=== PATIENT | male | born 1970 | race Caucasian/White ===

== ENCOUNTER 2017-02-22 07:07 | Emergency (ER) | payer OTHER ==
[2017-02-22 07:20] VITALS: BP 129/82
--- NOTE | 2017-02-22 08:19 | UC ---
Efren Brito Aidan, scribed for Thom Gay MD on 02/22/17 at 0742 . FLU HPI - HPI Summary HPI Summary: 47 y/o male presents to the Urgent Care with a complaint of an acute, constant, moderate sore throat that has persisted for the past 3 weeks. For the past 2 days, he has had crusty eyes and a productive cough producing yellow and clear phlegm. Other associated symptoms include chest congestion in the chest and sinus pressure. Though he denies fever or chills, several days ago, his son had a fever. Pt has not tried antihistamines. Hx of allergies to cats, however, no know allergies to medications. His medications were reviewed. - History of Current Complaint Chief Complaint: UCGeneralIllness Stated Complaint: SORE THROAT Time Seen by Provider: 02/22/17 07:20 Hx Obtained From: Patient Onset/Duration: Sudden Onset, Lasting Days, Still Present Severity Currently: Moderate Severity Initially: Moderate Pain Intensity: 0 Pain Scale Used: 0-10 Numeric Associated Signs & Symptoms: Positive: Cough. Negative: Negative - chest congestion, sinus pressure, sore throat, crust in the eyes - Allergy/Home Medications Allergies/Adverse Reactions: Allergies Allergy/AdvReac Type Severity Reaction Status Date / Time Cat Allergy Airway Uncoded 02/22/17 07:20 Obstruction Home Medications: Home Medications Bimatoprost 0.01% OPHTH (NF) [Lumigan 0.01% OPHTH (NF)] 1 drop BOTH EYES DAILY 02/22/17 [History Confirmed 02/22/17] Ezetimibe TAB* [Zetia TAB*] 1 tab PO DAILY 02/22/17 [History Confirmed 02/22/17] Travoprost Z 0.004% OPHTH (NF) [Travatan Z 0.004% OPTH (NF)] 1 drop BOTH EYES DAILY 02/22/17 [History Confirmed 02/22/17] PMH/Surg Hx/FS Hx/Imm Hx - Surgical History Surgical History: None - Family History Known Family History: Positive: Hypertension - Social History Occupation: Employed Full-time Lives: With Family Alcohol Use: Daily Alcohol Amount: 2 per day Substance Use Type: None Smoking Status (MU): Never Smoked Tobacco Review of Systems Constitutional: Negative Skin: Negative Eyes: Other - eye crust ENT: Sore Throat, Sinus Pain/Tenderness - sinus pressure Respiratory: Cough, Other - chest congestion Cardiovascular: Negative Gastrointestinal: Negative Genitourinary: Negative Motor: Negative Neurovascular: Negative Musculoskeletal: Negative Neurological: Negative Psychological: Negative All Other Systems Reviewed And Are Negative: Yes Physical Exam Triage Information Reviewed: Yes Appearance: Well-Appearing, No Pain Distress Vital Signs: Initial Vital Signs Temp 97.4 F 02/22/17 07:14 Pulse 77 02/22/17 07:14 Resp 18 02/22/17 07:14 BP 129/82 02/22/17 07:14 Pulse Ox 96 02/22/17 07:14 Vital Signs Reviewed: Yes Eye Exam: Normal Eyes: Positive: Other: - PERRL, EOMI, injected sclara bilaterally, crusting on eyelashes, ENT Exam: Normal ENT: Positive: Other: - positive rhinorrhea Neck exam: Normal Neck: Positive: Supple, Nontender Respiratory Exam: Normal Respiratory: Positive: Other: - CTA, breath sounds present Cardiovascular: Positive: RRR Abdomen Description: Positive: Nontender, Soft, Other: - anterior cervical lymphadenopathy Bowel Sounds: Positive: Present Musculoskeletal Exam: Normal Musculoskeletal: Positive: Strength Intact, ROM Intact Neurological Exam: Normal Neurological: Positive: Alert Psychological Exam: Normal Psychological: Positive: Age Appropriate Behavior Skin Exam: Normal Flu Course/Dx - Course Course Of Treatment: 47 y/o male presents with a sore throat, chest congestion, sinus pressure and a cough. Medications reviewed. - Differential Dx/Diagnosis Provider Diagnoses: Sinusitis Discharge - Discharge Plan Condition: Stable Disposition: HOME Prescriptions: Amoxicillin/Clavulanate TAB* [Augmentin TAB 875*] 875 mg PO BID #20 tab Tobramycin 0.3% OPHTH.BRUCE* 1 drop BOTH EYES Q4H #1 btl Patient Education Materials: Sinusitis (ED), Conjunctivitis (ED) Referrals: No Primary Care Phys,NOPCP [Primary Care Provider] - Additional Instructions: FOLLOW UP WITH YOUR DOCTOR. GET RECHECKED FOR ANY WORSENING OF YOUR CONDITION OR QUESTIONS OR CONCERNS. The documentation as recorded by the Efren galloway Aidan accurately reflects the service I personally performed and the decisions made by me, Thom Gay MD.
== END 2017-02-22 07:42 | disposition home or self-care (01) ==
LOC: UCEAST 07:07
DX: J32.9 Chronic sinusitis, unspecified (principal)
CPT/HCPCS: 99212; G0463

== ENCOUNTER 2017-03-10 15:15 | Emergency (ER) | payer OTHER ==
[2017-03-10 15:28] VITALS: BP 119/85
--- NOTE | 2017-03-10 16:25 | UC ---
Throat Pain/Nasal Alonzo HPI - HPI Summary HPI Summary: Was tx for sinusitis with augmentin starting 02/22/17 for 10 days. [place] like he responded quickly and markedly, but only got about 90% better. After he stopped abx sx quickly worsened and now he is having sinus pain, congestion, and ear fullness. Denies fever, trouble breathing, or drainage from the ears. - History of Current Complaint Chief Complaint: UCRespiratory Stated Complaint: RESP ISSUE Time Seen by Provider: 03/10/17 16:06 Hx Obtained From: Patient Onset/Duration: Gradual Onset, Lasting Weeks Severity: Moderate Cough: Nonproductive Associated Signs & Symptoms: Positive: Sinus Discomfort, Nasal Discharge. Negative: Fever, Vomiting, Rash - Allergies/Home Medications Allergies/Adverse Reactions: Allergies Allergy/AdvReac Type Severity Reaction Status Date / Time Niacin [From Niaspan] Allergy Severe HAND TREMOR Verified 03/10/17 15:28 Statins Allergy Severe MUSCLE Verified 03/10/17 15:28 PAIN, LIGHT SENSITIVITY Cat Allergy Airway Uncoded 03/10/17 15:28 Obstruction Home Medications: Home Medications Timolol 0.5% OPTH.BRUCE* [Timoptic 0.5% Opth*] 03/10/17 [History] PMH/Surg Hx/FS Hx/Imm Hx Previously Healthy: No - glaucoma - Surgical History Surgical History: None - Family History Known Family History: Positive: Hypertension - Social History Alcohol Use: Daily Alcohol Amount: 2 per day Substance Use Type: None Smoking Status (MU): Never Smoked Tobacco Review of Systems Constitutional: Negative Skin: Negative Eyes: Negative ENT: Ear Ache, Sinus Congestion, Sinus Pain/Tenderness Respiratory: Negative Cardiovascular: Negative Gastrointestinal: Negative Genitourinary: Negative Motor: Negative Neurovascular: Negative Musculoskeletal: Negative Neurological: Negative Psychological: Negative All Other Systems Reviewed And Are Negative: Yes Physical Exam Triage Information Reviewed: Yes Appearance: Well-Appearing, No Pain Distress, Well-Nourished Vital Signs: Initial Vital Signs Temp 97.8 F 03/10/17 15:24 Pulse 76 03/10/17 15:24 Resp 16 03/10/17 15:24 BP 119/85 03/10/17 15:24 Pulse Ox 96 03/10/17 15:24 Vital Signs Reviewed: Yes Eye Exam: Normal Eyes: Positive: Conjunctiva Clear ENT: Positive: Hearing grossly normal, Pharynx normal, Nasal congestion, TMs normal, Other: - sinus tenderness. Negative: Tonsillar swelling, Tonsillar exudate Dental Exam: Normal Neck exam: Normal Neck: Positive: Supple, Nontender Respiratory Exam: Normal Respiratory: Positive: Chest non-tender, Lungs clear, Normal breath sounds, No respiratory distress, No accessory muscle use Cardiovascular Exam: Normal Cardiovascular: Positive: RRR, No Murmur Musculoskeletal Exam: Normal Neurological Exam: Normal Neurological: Positive: Alert Psychological Exam: Normal Skin Exam: Normal Throat Pain/Nasal Course/Dx - Differential Dx/Diagnosis Provider Diagnoses: recurrent rhinosinusitis Discharge - Discharge Plan Condition: Stable Disposition: HOME Prescriptions: Mometasone NASAL (NF) [Nasonex (NF)] 2 spray BOTH NARES BID #1 nasal.spr Moxifloxacin TAB(NF) [Avelox TAB (NF)] 400 mg PO DAILY #10 tab Patient Education Materials: Rhinosinusitis (ED) Referrals: No Primary Care Phys,NOPCP [Primary Care Provider] - Additional Instructions: Please arrange to follow up with your primary care provider around when you will be finishing this antibiotic; if you are not completely better, you may need to see an ENT.
== END 2017-03-10 16:35 | disposition home or self-care (01) ==
LOC: UCEAST 15:15
DX: J01.90 Acute sinusitis, unspecified (principal)
CPT/HCPCS: 99212; G0463

== ENCOUNTER → 2018-10-12 10:05 | Day surgery (SDC) | payer OTHER ==
[~2018-10-12 10:05] MED LIST: Buffered Lidocaine 1% SYRIN* 1 ML/SYRINGE INTRADERM ONE; Bupivacaine 0.5% W/EPI SDV* 30 ML VIAL ONE; Dexamethasone IV* 4 MG/ML 1 ML (4 MG) IV SLOW PU ONE; Dexamethasone IV* 4 MG/ML 1 ML (4 MG) ONE; Famotidine IV* 10 MG/ML 2 ML (20 mg) IV ONE; Famotidine IV* 10 MG/ML 2 ML (20 mg) ONE; Ketorolac INJ* 30 MG/ML 1 ML VIAL ONE; Lactated Ringers 1000 ML Bag* 1,000 ML IV SCH; Lidocaine 1% INJ* 10 MG/ML 30 ML SDV ONE; Midazolam* 1 MG/ML 5 ML VIAL (5 MG) ONE; Naloxone* 0.4 MG/ML 1 ML VIAL IV PRN; Ondansetron INJ* 2 MG/ML VIAL ONE; Propofol* 10 MG/ML 20 ML BTL ONE; ceFAZolin 2 GM PREMIX in ORs 2 GM/50 ML BAG IVPB ONE; fentaNYL* 50 MCG/ML 2 ML VIAL (100 MCG VIAL) ONE
[2018-10-12 16:02] VITALS: BP 130/77
--- NOTE | 2018-10-12 20:23 | OP ---
CC: Dr. Parul Hidalgo * DATE OF OPERATION: 10/12/18 - SDS DATE OF : 72 SURGEON: Milton Echeverria MD DRY FINISHER: Maribeth Dupree NP ANESTHESIOLOGIST: Dr. Lora. ANESTHESIA: LMAC anesthesia. PRE-OP DIAGNOSIS: Right inguinal hernia. POST-OP DIAGNOSIS: Right inguinal hernia. OPERATIVE PROCEDURE: Open repair of right inguinal hernia with mesh. DESCRIPTION OF PROCEDURE: The patient was supine on the operating room table. After adequate intravenous sedation, compression stockings, Simi Hugger warmer, and intravenous antibiotics, the right groin was clipped and prepped with antiseptic, draped in a sterile fashion. Local infiltrative anesthesia was administered. An approximately 2.5-inch incision was created and carried down to the external oblique, which was opened in the direction of its fibers. Cord structures were encircled, the [place] drain tented upward. Indirect space hernia was readily identified. It was dissected free and reduced and a cone mesh plug was placed into the internal ring, sutured there with 2-0 Vicryl. A second piece of mesh was placed over the inguinal floor, sutured at the tubercle tails, was split, brought around the cord structures and tacked down laterally. External oblique was closed over top with 2-0 Vicryl, Vinicius's with 3-0 Vicryl, skin with 4-0 Prolene, followed by sterile dressing. He tolerated the procedure well, was awakened and brought to Recovery in good condition. There were no complications. No drains. No pathologic specimens. Sponge and instrument counts correct. Estimated blood loss 10 mL. [id number]/[facility] #: [id number] [facility]
== END | disposition home or self-care (01) ==
LOC: OR 10:05
PROVIDERS: ATTEND Surgery
DX: K40.90 Unilateral inguinal hernia, without obstruction or gangrene, not specified as recurrent (principal); E78.00 Pure hypercholesterolemia, unspecified; Z88.8 Allergy status to other drugs, medicaments and biological substances
CPT/HCPCS: C1781; J0690; J1100; J1885; J2250; J2405; J2704; J3010

== ENCOUNTER 2019-07-19 14:56 | Emergency (ER) | payer OTHER ==
--- OUTSIDE RECORDS SUMMARY | 2019-07-19 15:01 | XMS REPORT | Continuity of Care Document ---
:1970 External Reference #:[id number] Author Name Toamsz Shaw, OD Address [address] [place] [address] Care Team Providers Name Role Phone Parul Gibson MD Care Team Information [employer] [phone] Problems Description No Information Available Social History Type Date Description Comments Sex Unknown ETOH Use Drinks 2 Alcoholic Beverages Per Day Tobacco Use Start: Unknown Patient has never smoked Smoking Status Reviewed: 06/19/19 Patient has never smoked Allergies, Adverse Reactions, Alerts Active Allergies Reaction Severity Comments Date Statins 11/29/2018 Niacin 11/29/2018 Medications Active Medications SIG Qnty Indications Ordering Provider Date Fish Oil Adult Gummies Unknown 113.5mg Chewtabs Timolol Maleate one drop every Unknown Ophthalmic Gel Forming morning both eyes 0.5% GFS Vyzulta Unknown 0.024% Solution Immunizations Description No Information Available Vital Signs Date Vital Result Comment 06/20/2019 8:36am Intraocular Pressure Right Eye 13 mmHg Intraocular Pressure Left Eye 13 mmHg 11/29/2018 8:15am Intraocular Pressure Right Eye 10 mmHg Intraocular Pressure Left Eye 11 mmHg Results Description No Information Available Procedures Date Code Description Status 06/20/2019 37355 Eye Exam Est Intermediate Completed Medical Devices Description No Information Available Encounters Description No Information Available Assessments Date Code Description Provider 06/20/2019 H40.1132 Primary open-angle glaucoma, bilateral, Tomasz Shaw, OD moderate stage Plan of Treatment No Information Available Functional Status Description No Information Available Mental Status Description No Information Available Referrals Description No Information Available
[2019-07-19 15:09] VITALS: BP 105/72
--- NOTE | 2019-07-19 15:50 | UC ---
Abdominal Pain Male HPI - HPI Summary HPI Summary: 49-year-old male comes in with a chief complaint of abdominal pain. Started about 10 or 11 days ago.'s been having intermittent diarrhea and abdominal cramping. In the last day the pain is gotten much more constant and intense. Pain is throughout the whole center of the abdomen. He has decreased appetite. No blood in the stools. Has had some chills. No prior abdominal surgeries. - History of Current Complaint Chief Complaint: UCAbdominalPain Stated Complaint: ABDOMINAL PAIN Time Seen by Provider: 07/19/19 15:42 Pain Intensity: 7 - Allergies/Home Medications Allergies/Adverse Reactions: Allergies Allergy/AdvReac Type Severity Reaction Status Date / Time niacin Allergy hand Verified 07/19/19 15:11 tremors Bipngny-Ian-Xfo Reductase Allergy muscle pain Verified 07/19/19 15:11 Inhibitor Cat Allergy Airway Uncoded 07/19/19 15:11 Obstruction PMH/Surg Hx/FS Hx/Imm Hx Previously Healthy: Yes - Surgical History Surgical History: Yes Surgery Procedure, Year, and Place: wisdom teeth, 1991. hernia inguinal repair Sep 2018 - Family History Known Family History: Positive: Hypertension - Social History Alcohol Use: Daily Alcohol Amount: 2 per day Substance Use Type: None Smoking Status (MU): Never Smoked Tobacco Review of Systems All Other Systems Reviewed And Are Negative: Yes Constitutional: Positive: Other - SEE HPI Skin: Positive: Negative Eyes: Positive: Negative ENT: Positive: Negative Respiratory: Positive: Negative Cardiovascular: Positive: Negative Gastrointestinal: Positive: Abdominal Pain, Other - SEE HPI Genitourinary: Positive: Negative Motor: Positive: Negative Neurovascular: Positive: Negative Musculoskeletal: Positive: Negative Neurological: Positive: Negative Psychological: Positive: Negative Is Patient Immunocompromised?: No Physical Exam Triage Information Reviewed: Yes Appearance: Well-Appearing, Well-Nourished, Pain Distress - MILD WITH EXAM Vital Signs: Initial Vital Signs Temp 98.8 F 07/19/19 15:03 Pulse 89 07/19/19 15:03 Resp 17 07/19/19 15:03 BP 105/72 07/19/19 15:03 Pulse Ox 96 07/19/19 15:03 Vital Signs Reviewed: Yes Eye Exam: Normal Eyes: Positive: Conjunctiva Clear Neck: Positive: Supple Respiratory: Positive: No respiratory distress Abdomen Description: Positive: Other: - Abdomen is tender in the right lower quadrant left lower quadrant and periumbilical. I do not hear any bowel sounds. Bowel Sounds: Positive: Absent Musculoskeletal: Positive: Strength Intact, ROM Intact Neurological: Positive: Alert Psychological: Positive: Age Appropriate Behavior Skin Exam: Normal Abd Pain Male Course/Dx - Course Course Of Treatment: I recommended further evaluation in the emergency department. Patient prefers to go by POV. - Differential Dx/Clinical Impression Provider Diagnosis: Abdominal pain Discharge ED - Sign-Out/Discharge Documenting (check all that apply): Patient Departure All imaging exams completed and their final reports reviewed: No Studies - Discharge Plan Condition: Stable Disposition: HOME-RECOMMEND TO ED Patient Education Materials: Acute Abdominal Pain (ED) Referrals: Parul Hidalgo MD [Primary Care Provider] - Additional Instructions: GO DIRECTLY TO THE EMERGENCY DEPARTMENT FOR FURTHER EVALUATION OF YOUR ABDOMINAL PAIN. - Billing Disposition and Condition Condition: STABLE Disposition: Home-Recommend to ED
== END 2019-07-19 15:50 | disposition home health service (06) ==
LOC: UCEAST 14:56
DX: R10.9 Unspecified abdominal pain (principal); R19.7 Diarrhea, unspecified; R68.83 Chills (without fever); Z88.8 Allergy status to other drugs, medicaments and biological substances; Z91.09 Other allergy status, other than to drugs and biological substances
CPT/HCPCS: 99212; G0463

== ENCOUNTER 2019-07-19 16:29 | Observation (INO) | payer OTHER ==
[2019-07-19 18:25] LABS: Hematocrit 48 % (42-52); Hemoglobin 16.2 g/dL (14.0-18.0); Mean Corpuscular HGB Conc 34 g/dL (31-36); Mean Corpuscular Hemoglobin 30 pg (27-31); Mean Corpuscular Volume 90 fL (80-94); Mean Platelet Volume 8.5 fL (7.4-10.4); Platelet Count 384 10^3/uL (150-450); Red Blood Count 5.34 10^6 /uL (4.18-5.48); Red Cell Distribution Width 13 % (10-15); White Blood Count 19.3 10^3/uL (3.5-10.8)
[2019-07-19 18:26] LABS: ABS Basophils 0.1 10^3/ul (0-0.2); ABS Lymphocytes 1.2 10^3/ul (1.0-4.8); ABS Monocytes 1.8 10^3/ul (0-0.8); ABS Neutrophils 16.3 10^3/ul (1.5-7.7); Eosinophil % 0.1 %; Nucleated Red Blood Cells % 0.2
[2019-07-19 18:42] LABS: ALT 42 U/L (7-52); AST 21 U/L (13-39); Albumin 4.5 g/dL (3.2-5.2); Albumin/Globulin Ratio 1.2 (1-3); Alkaline Phosphatase 49 U/L (34-104); Anion Gap 7 mmol/L (2-11); BUN/Creatinine Ratio 8.8 (8-20); Blood Urea Nitrogen 10 mg/dL (6-24); C Reactive Protein 37.24 mg/L (<8.01); CO2 Carbon Dioxide 25 mmol/L (22-32); Calcium 9.7 mg/dL (8.6-10.3); Chloride 103 mmol/L (101-111); EGFR African American 83.8 (>60); EGFR Non-African American 69.3 (>60); Globulin 3.7 g/dL (2-4); Glucose 121 mg/dL (70-100); Potassium 4.5 mmol/L (3.5-5.0); Sodium 135 mmol/L (135-145); Total Protein 8.2 g/dL (6.4-8.9)
--- NOTE | 2019-07-19 20:45 | ED ---
Abdominal Pain/Male - HPI Summary HPI Summary: This pt is a 49 Y/O M presenting to [facility] with a CC of umbilical abdominal pain described as gassy that has been present since Tuesday07/09/19 and has been intermittent until this morning. He states that the pain was more intense this morning at 0100 and that it has been waxing and waning throughout the day. At his worse it was a 7/10 in severity, but currently is a 5/10. He states that he had one episode of nausea and vomiting at 1230 today when he had lunch and he has not had a meal since. He states that his bowel movements have been irregular and have been small compared to his normal movements. He states that the pain is also described as cramping and radiates to his back at the worse moments. He denies any fevers, SOB, headaches, and chills. He has no alleviating factors but states that food has been aggravating. He states that he has a PMHx of GERD and his mother has a PMHx of diabetes. - History of Current Complaint Chief Complaint: EDAbdPain Stated Complaint: ABDOMINAL PAIN PER PT Time Seen by Provider: 07/19/19 20:17 Hx Obtained From: Patient Onset/Duration: Gradual Onset, Lasting Days - 11, Still Present, Worse Since - 0100 today Timing: Intermittent Severity Initially: Moderate - 7/10 Severity Currently: Mild Pain Intensity: 5 Pain Scale Used: 0-10 Numeric Location: Diffuse, Umbilical Radiates: Yes Radiates to: Back Character: Cramping, Other: - gassy Aggravating Factor(s): Food Alleviating Factor(s): Nothing Associated Signs And Symptoms: Positive: Negative - SOB, chills, Back Pain, Decreased Appetite, Nausea, Vomiting, Other - irregular bowel movements. Negative: Fever, Urinary Symptoms - Allergies/Home Medications Allergies/Adverse Reactions: Allergies Allergy/AdvReac Type Severity Reaction Status Date / Time niacin Allergy hand Verified 07/19/19 16:34 tremors Qjnyibk-Atc-Vxh Reductase Allergy muscle pain Verified 07/19/19 16:34 Inhibitor PMH/Surg Hx/FS Hx/Imm Hx Previously Healthy: Yes Endocrine/Hematology History: Denies: Hx Diabetes, Hx Thyroid Disease Cardiovascular History: Reports: Hx Hypercholesterolemia Denies: Hx Hypertension, Other Cardiovascular Problems/Disorders Respiratory History: Denies: Hx Asthma, Hx Chronic Obstructive Pulmonary Disease (COPD), Other Respiratory Problems/Disorders GI History: Reports: Hx Gastroesophageal Reflux Disease Denies: Hx Ulcer, Other GI Disorders Sensory History: Reports: Hx Contacts or Glasses - glasses, Hx Glaucoma - satish Denies: Hx Hearing Aid Opthamlomology History: Reports: Hx Contacts or Glasses - glasses, Hx Glaucoma - satish Neurological History: Denies: Other Neuro Impairments/Disorders - Surgical History Surgery Procedure, Year, and Place: wisdom teeth, 1991. hernia inguinal repair Sep 2018 Hx Anesthesia Reactions: No - Immunization History Immunizations Up to Date: Yes Infectious Disease History: No Infectious Disease History: Denies: Hx Hepatitis, Hx Human Immunodeficiency Virus (HIV), History Other Infectious Disease, Traveled Outside the [place] in Last 30 Days - Family History Known Family History: Positive: Hypertension, Diabetes, Other - breat CA, glaucoma - Social History Occupation: Employed Full-time Lives: With Family Alcohol Use: Daily Alcohol Amount: 1 per day Hx Substance Use: No Substance Use Type: Reports: None Hx Tobacco Use: No Smoking Status (MU): Never Smoked Tobacco Household Exposure: No Review of Systems - ROS Summary Review of Systems Summary: Home Medications Medication Instructions Recorded Confirmed Type Ezetimibe TAB* [Zetia TAB*] 1 tab PO QPM 02/22/17 07/19/19 History Timolol 0.5% OPTH.BRUCE* [Timoptic 1 drop BOTH EYES QAM 03/10/17 07/19/19 History 0.5% Opth*] Cholecalciferol TAB* [Vitamin D 1,000 unit PO DAILY 10/09/18 07/19/19 History TAB*] [place]-3S/Dha/Epa/Fish Oil [Fish 1 tab PO QAM 10/09/18 07/19/19 History Oil 1,200 mg Softgel] Negative: Fever, Chills Negative: Shortness Of Breath Positive: Abdominal Pain - umbilical , Vomiting, Nausea, Other - irregularly small bowel movements Positive: Other - radiated back pain Psychological: Other - decreased appetite All Other Systems Reviewed And Are Negative: Yes Physical Exam - Summary Physical Exam Summary: General: Well-developed, Well-nourished male. No acute distress. HEENT: Normocephalic, Atraumatic. Eyes: Conjuctiva normal, PERRL. Ears: TMs within normal limits. Nares: (-) discharge, (-) erythema. Oropharynx: Clear, mucous membranes moist, (-) exudates. Neck: Soft, FROM, (-) lymphadenopathy, (-) thyromegaly, (-) JVD. Cardiovascular: Normal sinus rhythm, (-) murmur. Lungs: Clear to auscultation bilaterally (-) wheezes, (-) rales, (-) rhonchi. Abdomen: Soft, Mild diffuse abdominal tenderness , non-distended, (-) organomegaly, normal bowel sounds. Back: (-) CVA tenderness Extremities: No edema. Skin: Warm, dry, (-) rash. Neuro: Alert and oriented x3, no focal deficits. Psychiatric: Mood normal, affect normal. Triage Information Reviewed: Yes Vital Signs On Initial Exam: Initial Vitals Temp Pulse Resp BP Pulse Ox 97.2 F 84 16 123/83 98 07/19/19 16:31 07/19/19 16:31 07/19/19 16:31 07/19/19 16:31 07/19/19 16:31 Vital Signs Reviewed: Yes Procedures - Sedation Patient Received Moderate/Deep Sedation with Procedure: No Diagnostics - Vital Signs Vital Signs Temp Pulse Resp BP Pulse Ox 07/19/19 19:30 98.8 F 92 16 132/71 97 07/19/19 16:31 97.2 F 84 16 123/83 98 - Laboratory Lab Results: Lab Results 07/19/19 07/19/19 07/19/19 Range/Units 18:18 18:18 18:18 WBC 19.3 H (3.5-10.8) 10^3/uL RBC 5.34 (4.18-5.48) 10^6 /uL Hgb 16.2 (14.0-18.0) g/dL Hct 48 (42-52) % MCV 90 (80-94) fL MCH 30 (27-31) pg MCHC 34 (31-36) g/dL RDW 13 (10-15) % Plt Count 384 (150-450) 10^3/uL MPV 8.5 (7.4-10.4) fL Neut % (Auto) 84.2 % Lymph % (Auto) 6.0 % Gregory % (Auto) 9.4 % Eos % (Auto) 0.1 % Baso % (Auto) 0.3 % Absolute Neuts (auto) 16.3 H (1.5-7.7) 10^3/ul Absolute Lymphs (auto) 1.2 (1.0-4.8) 10^3/ul Absolute Monos (auto) 1.8 H (0-0.8) 10^3/ul Absolute Eos (auto) 0.0 (0-0.6) 10^3/ul Absolute Basos (auto) 0.1 (0-0.2) 10^3/ul Absolute Nucleated RBC 0.0 10^3/ul Nucleated RBC % 0.2 Sodium 135 (135-145) mmol/L Potassium 4.5 (3.5-5.0) mmol/L Chloride 103 (101-111) mmol/L Carbon Dioxide 25 (22-32) mmol/L Anion Gap 7 (2-11) mmol/L BUN 10 (6-24) mg/dL Creatinine 1.13 (0.67-1.17) mg/dL Est GFR ( Amer) 83.8 (>60) Est GFR (Non-Af Amer) 69.3 (>60) BUN/Creatinine Ratio 8.8 (8-20) Glucose 121 H (70-100) mg/dL Lactic Acid 0.8 (0.5-2.0) mmol/L Calcium 9.7 (8.6-10.3) mg/dL Total Bilirubin 0.60 (0.2-1.0) mg/dL AST 21 (13-39) U/L ALT 42 (7-52) U/L Alkaline Phosphatase 49 (34-104) U/L C-Reactive Protein 37.24 H (<8.01) mg/L Total Protein 8.2 (6.4-8.9) g/dL Albumin 4.5 (3.2-5.2) g/dL Globulin 3.7 (2-4) g/dL Albumin/Globulin Ratio 1.2 (1-3) Lipase < 10 L (11.0-82.0) U/L Result Diagrams: 07/19/19 18:18 07/19/19 18:18 Lab Statement: Any lab studies that have been ordered have been reviewed, and results considered in the medical decision making process. - CT A/P CT CT Interpretation Completed By: Radiologist Summary of CT Findings: Diffusely enlarged appendix with surrounding inflammatory changes suggestive of. acute appendicitis. No evidence of perforation or abscess. ED physician has reviewed this report. Abdominal Pain Male Course/Dx - Course Course Of Treatment: 49 -year-old man presents with abdominal pain. Came back today. Had one episode of vomiting today. Workup demonstrates a significantly elevated white count. Patient given IV fluids, Toradol, Zofran. CT abdomen and pelvis with contrast demonstrates probable acute appendicitis. Patient referred to surgery for admission and treatment. Iohexol, Ketorolac, Ondansetron Hcl, Sodium Chloride - Diagnoses Differential Diagnosis/HQI/PQRI: Appendicitis Provider Diagnoses: Appendicitis - Provider Notifications Discussed Care Of Patient With: Warren Potter Time Discussed With Above Provider: 21:49 Instructed by Provider To: Will See In ED Admit/Transition Orders Completed By ED Provider: Yes Discharge ED - Sign-Out/Discharge Documenting (check all that apply): Patient Departure - admitted - Discharge Plan Condition: Stable Disposition: ADMITTED TO [facility] - Billing Disposition and Condition Condition: STABLE Disposition: Admitted to [facility] - Attestation Statements Document Initiated by Scribe: Yes Documenting Scribe: Moses Tapia Provider For Whom Scribe is Documenting (Include Credential): Carolyn Reyes MD Scribe Attestation: Moses Brito, scribed for Carolyn Reyes MD on 07/20/19 at 0428. Scribe Documentation Reviewed: Yes Provider Attestation: The documentation as recorded by the Moses galloway accurately reflects the service I personally performed and the decisions made by me, Carolyn Reyes MD Status of Scribe Document: Viewed
[2019-07-19] MEDS ORDERED: NS 0.9% 1000 ML** 1,000 ML IV ONE (20:46)
[2019-07-19] MEDS ORDERED: Ketorolac INJ* 30 MG/ML 1 ML VIAL IV PUSH ONE (20:46)
[2019-07-19] MEDS ORDERED: Ondansetron INJ* 2 MG/ML VIAL IV ONE (20:46)
[2019-07-19] MEDS ORDERED: Iohexol 300* (CONTRAST) 10 ML SDV IV ONE (20:57)
[2019-07-19] MEDS ORDERED: HYDROmorphone INJ* 0.5 MG/0.5 ML SYRINGE IV SLOW PU PRN (22:38)
[2019-07-19] MEDS ORDERED: Ondansetron INJ* 2 MG/ML VIAL IV PRN (22:38)
--- NOTE | 2019-07-19 22:53 | HP ---
H&P (Free Text) History and Physical: CC: abdominal pain HPI: 49 yo m with periumbilical abdominal pain since 1 am. Associated with N/V x1. Tried OTC antacid without relief. Reports anorexia due to pain and last had soup at lunchtime. He has no F/C. Pain worse with movement. No diarrhea/ constipation/dysuria/hematuria. He had similar pain last week that resolved. He presented to ED and was sent for CT. Findings c/w appendicitis without abscess or perforation. PMH: glaucoma, high cholesterol PSH: RIHR open 05/2019 Meds:Timolol. omega-3s, Zetia, vit D All: niacin, statins SH: ; works at [employer]; no tob; +EtOH 1 drink/day; no drugs FH: reviewed and not contributory; no anesthesia reactions; no blood clots ROS: 14 pt review completed and significant for above +/-; otherwise negative. PE: Vital Signs Temp 98.8 F 07/19/19 19:30 Pulse 81 07/19/19 20:45 Resp 16 07/19/19 19:30 BP 129/73 07/19/19 20:45 Pulse Ox 96 07/19/19 20:45 Gen: WDWN; NAD HEENT: NCAT; EOMI; dentition intact; no low/rhinorrhea Neck: no EFRAÍN; no mass; trachea M/: Lungs: CTA B Heart: reg s1s2 Abd: ND, soft, tender in RLQ to deep palpation; no Rovsing Ext: warm, no c/c/e; no CT Intake & Output 07/19/19 07/19/19 07/20/19 06:59 18:59 06:59 Weight 215 lb 215 lb Laboratory Results - last 24 hr 07/19/19 07/19/19 07/19/19 18:18 18:18 18:18 WBC 19.3 H RBC 5.34 Hgb 16.2 Hct 48 MCV 90 MCH 30 MCHC 34 RDW 13 Plt Count 384 MPV 8.5 Neut % (Auto) 84.2 Lymph % (Auto) 6.0 Ralls % (Auto) 9.4 Eos % (Auto) 0.1 Baso % (Auto) 0.3 Absolute Neuts (auto) 16.3 H Absolute Lymphs (auto) 1.2 Absolute Monos (auto) 1.8 H Absolute Eos (auto) 0.0 Absolute Basos (auto) 0.1 Absolute Nucleated RBC 0.0 Nucleated RBC % 0.2 Sodium 135 Potassium 4.5 Chloride 103 Carbon Dioxide 25 Anion Gap 7 BUN 10 Creatinine 1.13 Est GFR ( Amer) 83.8 Est GFR (Non-Af Amer) 69.3 BUN/Creatinine Ratio 8.8 Glucose 121 H Lactic Acid 0.8 Calcium 9.7 Total Bilirubin 0.60 AST 21 ALT 42 Alkaline Phosphatase 49 C-Reactive Protein 37.24 H Total Protein 8.2 Albumin 4.5 Globulin 3.7 Albumin/Globulin Ratio 1.2 Lipase < [address] images reviewed; inflammed an dilated appendix Imp: 49 yo M with acute appendicitis. Plan: Admit, NPO, IV abx, pain meds. Laparoscopic appendectomy planned for AM with Dr. Saucedo. D/w patient who stated understanding and agrees.
[2019-07-19] MEDS ORDERED: ZOSYN 3.375 GM x ONE DOSE over 30 miuntes IVPB ×2 (23:00)
[2019-07-19] MEDS: NS 0.9% 1000 ML** 1,000 ML IV SCH (23:52)
[2019-07-20] MEDS: Ketorolac INJ* 30 MG/ML 1 ML VIAL IV SCH ×5 (03:32→23:57)
[2019-07-20] MEDS: Piperacillin/Tazobactam VIAL*) 3.375 GM in NS 0.9% 100 ML* 100 ML IVPB SCH ×3 (03:32→19:14)
[2019-07-20] MEDS ORDERED: Famotidine IV* 10 MG/ML 2 ML (20 mg) IV ONE (08:12)
[2019-07-20] MEDS ORDERED: Buffered Lidocaine 1% SYRIN* 1 ML/SYRINGE INTRADERM ONE (08:12)
[2019-07-20] MEDS ORDERED: diPHENhydraMINE IV* 50 MG/ML 1 ml VIAL (BENADRYL) IV PRN (08:14)
[2019-07-20] MEDS ORDERED: fentaNYL* 50 MCG/ML 2 ML VIAL (100 MCG VIAL) IV PRN (08:14)
[2019-07-20] MEDS ORDERED: HYDROcodone/ACETAMIN 5-325 MG* 1 TAB PO PRN ×2 (08:14)
[2019-07-20] MEDS ORDERED: DiMENhydriNATE IV* 50 MG/ML VIAL IV PUSH PRN (08:14)
[2019-07-20] MEDS ORDERED: Naloxone* 0.4 MG/ML 1 ML VIAL IV PRN (08:14)
[2019-07-20] MEDS ORDERED: Acetaminophen TAB* 325 MG PO PRN ×2 (08:14→11:49)
[2019-07-20] MEDS ORDERED: PROCHLORPERAZINE INJ 5 MG/ML 2 ML VIAL IV PRN (08:14)
[2019-07-20] MEDS ORDERED: fentaNYL* 50 MCG/ML 2 ML VIAL (100 MCG VIAL) ONE (08:20)
[2019-07-20] MEDS ORDERED: Midazolam* 1 MG/ML 2 ML VIAL (2 MG) ONE (08:20)
[2019-07-20] MEDS ORDERED: Bupivacaine 0.25% EPI 200,000* 30 ML SDV ONE (08:39)
[2019-07-20] MEDS ORDERED: Famotidine IV* 10 MG/ML 2 ML (20 mg) ONE (08:41)
[2019-07-20] MEDS ORDERED: Influenza VAC *QUAD* 2019-20* 0.5 ML SYRINGE IM ONE (09:00)
[2019-07-20] MEDS ORDERED: PTO:Timolol 0.5% OPTH.SOL* BTL BOTH EYES SCH (09:00)
[2019-07-20] MEDS ORDERED: Lactated Ringers 1000 ML Bag* 1,000 ML IV SCH (09:00)
[2019-07-20] MEDS ORDERED: Succinylcholine* 20 MG/ML 10 ML VIAL ONE (09:08)
[2019-07-20] MEDS ORDERED: Dexamethasone IV* 4 MG/ML 1 ML (4 MG) ONE (09:08)
[2019-07-20] MEDS ORDERED: Propofol* 10 MG/ML 20 ML BTL ONE (09:08)
[2019-07-20] MEDS ORDERED: Ondansetron INJ* 2 MG/ML VIAL ONE (09:08)
[2019-07-20] MEDS ORDERED: Cisatracurium* 2 MG/ML MDV 5 ML ONE (09:09)
[2019-07-20] MEDS ORDERED: Ketorolac INJ* 30 MG/ML 1 ML VIAL ONE (10:19)
--- NOTE | 2019-07-20 10:46 | OP ---
Operative Report - Blank - Operative Report Date of Operation: 07/20/19 Note: OPERATIVE REPORT Pre-op: Acute appendicitis Post-Op: Acute gangrenous retrocecal appendicitis Procedure:Laparocscopic appendectomy Surgeon: MD Sheryl Asst: Jose Roberto Andrews MD Anes: general with local, Dr. Avelar IVF:1 liter of crystalloid EBL:min Specimen: Appendix Drain: none Wound: 3 Findings: Above, no perforation, no abscess To PACU
[2019-07-20] MEDS ORDERED: oxyCODONE/Acetamin 5/325 MG* TAB PO PRN (11:55)
[2019-07-20] MEDS: NS 0.9% 1000 ML** 1,000 ML IV SCH ×2 (12:25→19:19)
--- NOTE | 2019-07-20 21:02 | OP ---
CC: Dr. Parul Hidalgo * DATE OF OPERATION: 07/20/19 - ROOM #333 DATE OF : 72 SURGEON: Stephen Saucedo MD LOGISTICS SUPPLY OFFICER: Ayana Andrews MD ANESTHESIOLOGIST: Dr. Avelar. ANESTHESIA: General with local. PRE-OP DIAGNOSIS: Acute appendicitis. POST-OP DIAGNOSIS: Acute gangrenous retrocecal appendicitis. OPERATIVE PROCEDURE: Laparoscopic appendectomy. ESTIMATED BLOOD LOSS: Minimal. WOUND CLASSIFICATION: III. COMPLICATIONS: None. DRAINS: None. SPECIMENS: Appendix. FINDINGS: Acute gangrenous appendicitis with a retrocecal appendix mainly involving the distal half of the appendix. The appendix was retrocecal, extending laterally and posterior to the cecum. BRIEF HISTORY: Mr. Tomasz Mccauley is a 49-year-old gentleman who presented to the emergency room with almost 24 hours of abdominal discomfort, mainly on the right lower quadrant of his abdomen. He was noted to have a leukocytosis of 19, 000. A CT scan showed findings consistent with acute appendicitis, most likely a retrocecal appendix. He was admitted to the surgical service and started on IV antibiotics. He is now to undergo a laparoscopic appendectomy this morning. The procedure was discussed with the patient and the risks of, but not limited to, bleeding, infection, intraabdominal abscess formation, injury to peritoneal and retroperitoneal structures, possibility of an open procedure, abscess formation , the risks of general anesthesia and blood clots were all explained. DESCRIPTION OF PROCEDURE: Written informed consent was obtained. The abdomen was marked with indelible ink. Preoperative antibiotics were administered. The patient was taken to the operating room and placed in the supine position. Sequential compression devices were placed on the lower extremities. The abdomen was prepped and draped in the usual sterile fashion. Time-out verification was completed. Initially, a small transverse incision was made just above the umbilicus at the midline and the peritoneal cavity was entered under direct vision. A 12 mm blunt port was inserted and the abdomen was insufflated to 15 mmHg. Under direct vision, a left lower quadrant abdominal 5 mm port was placed and a second 5 mm suprapubic port was placed. The right lower quadrant and pelvis were evaluated. There was no evidence of free intraabdominal fluid or purulence. Terminal ileum and cecum appeared to be unremarkable. Careful evaluation revealed that the terminal ileum, however, was adherent along the lateral right gutter and this was bluntly dissected off to reveal some fibrinous inflammatory response. I was able to identify the base of the cecum. We then identified the base of the appendix coming off the cecum and this directed somewhat inferiorly and then turned superiorly and appeared to be retrocecal, extending superiorly along the lateral and posterior aspect of the cecum with a significant amount of inflammation and this appeared to be a retrocecal appendicitis. We were able to identify the base of the appendix and follow this distally, dividing the peritoneal attachments laterally as well as dividing the mesentery of the appendix and mobilizing the ascending colon medially. Once this was complete, I was able to free up the distal half of the appendix along the lateral gutter and divide the mesoappendix sequentially with the LigaSure device. We made special care to assure that the entire appendix was removed. There was a significant amount of acute and chronic appearing inflammation, and the appendix was markedly indurated, thickened, and gangrenous , but there was no evidence of perforation or abscess. Once we were able to deliver the entire appendix up into view, we worked more proximally on the cecum to the base of the cecum which was unremarkable. A hull load of a 45 mm Endo-NUNU stapler was then used to divide the appendix and this was placed in an EndoCatch bag and brought out through the umbilical incision. We then irrigated the right lower quadrant. Hemostasis was assured. Fluid in the pelvis was irrigated. There was no evidence of purulence in this area. Staple line was intact. All ports were then removed under direct vision of the camera. There was no abdominal wall bleeding. I then proceeded to close the umbilical fascia with interrupted 0 Vicryl suture. I did note that some loop of small bowel had protruded up into the incision and this was inadvertently punctured with my 0 Vicryl suture, but this was identified and evaluated. There was no apparent transmural injury or bleeding, but I did oversew this with a single transverse oriented 3-0 silk suture, placed the small bowel back into the abdominal cavity. We then carefully closed the midline fascia with interrupted 0 Vicryl suture without difficulty. Additional Marcaine was infiltrated. All 3 incisions were approximated with subcuticular 4-0 Vicryl suture. Steri-Strips were applied. The patient tolerated the procedure well and was taken to the recovery room in stable condition. [id number]/[facility] #: [id number] [facility]
[2019-07-21] MEDS: NS 0.9% 1000 ML** 1,000 ML IV SCH (03:16)
[2019-07-21] MEDS: Piperacillin/Tazobactam VIAL*) 3.375 GM in NS 0.9% 100 ML* 100 ML IVPB SCH (03:16)
[2019-07-21] MEDS: Ketorolac INJ* 30 MG/ML 1 ML VIAL IV SCH (06:01)
[2019-07-21 07:41] VITALS: BP 105/51
[2019-07-21] MEDS ORDERED: PTO: Timolol 0.5% OPTH.SOL* BTL BOTH EYES SCH (09:00)
[2019-07-21 09:15] LABS: Urine Appearance Clear; Urine Bilirubin Negative (Negative); Urine Blood Negative (Negative); Urine Color Straw; Urine Glucose Negative (Negative); Urine Ketones Negative (Negative); Urine Nitrite Negative (Negative); Urine Protein Negative (Negative); Urine Urobilinogen Negative (Negative)
--- NOTE | 2019-07-21 11:05 | PN ---
Progress Note - Progress Note Date of Service: 07/21/19 Note: Feeling well. Minimal pain, has been receiving Toradol. Has been ambulating. Tolerating regular diet. Afebrile Temp Pulse Resp BP Pulse Ox 97.8 F 64 20 105/51 98 07/21/19 07:36 07/21/19 07:36 07/21/19 08:00 07/21/19 07:36 07/21/19 07:36 General: No acute distress. Pleasant Abdomen: soft, nondistended. Tenderness around incisions. Small amount of dried serosanguinous fluid on steri strips at umbilical incision. Other incisions clean and dry. Neuro: Alert, oriented x3 A&P: 49M with acute appendicitis s/p lap appy POD 1. Doing well. -D/c antibiotics -D/c IVF -Diet and activity as tolerated -D/c to home today
[2019-07-21] MEDS ORDERED: [UNRECOGNIZED DRUG - OTHER] BOTH EYES SCH (18:00)
--- NOTE | 2019-07-22 23:01 | DS ---
ADMIT DATE: 07/19/19 DISCHARGE DATE: 07/21/19 REASON FOR ADMISSION: Acute appendicitis DISCHARGE DIAGNOSIS: Acute appendicitis PATIENT CONDITION AT DISCHARGE: Stable PERTINENT PHYSICAL FINDINGS: Minimal tenderness over incisions PROCEDURE: Laparoscopic appendectomy HOSPITAL COURSE: Tomasz Mccauley is a 49 year old man who presented to the ED with abdominal pain and nausea and vomiting. WBC was elevated and CT scan showed dilated appendix. He was admitted and started on antibiotics. He was brought to the OR on for laparoscopic appendectomy by Dr Saucedo. He recovered in PACU and was then transferred to the floor. Due to severe inflammation seen intra-operatively , the patient stayed over night for antibiotics. On POD 1, antibiotics were stopped. He was tolerating a regular diet. Pain was well-controlled, and he was ambulating without difficulty. He was deemed medically ready for discharge. DISPOSITION: Home DISCHARGE INSTRUCTIONS FOLLOWING APPENDECTOMY OFFICE VISIT: Call the office at [phone] for an appointment as soon as possible after discharge. You should be seen in the office in 1 week. DIET: Resume your regular diet. No restrictions are necessary in regard to your surgery. WOUND CARE: * Shower daily. Wash over incision with regular soap and water. Sit-down baths should be avoided for at least a week. * Leave the skin tapes (steri-strips) on until they begin to loosen and curl on the ends. Then you may gently ease the tapes off, starting at both ends and working toward the incision. * Wear a light gauze bandage over the incision if your clothing irritates the incision. * If the incision is draining, wear a bulkier sterile bandage and change it at least twice daily. As the surgical wound heals, there is likely to be slight swelling, redness, or bruising of the skin. A few days later, the incision may feel lumpy. All of these are normal, and all of them will disappear in time. PLEASE CALL THE OFFICE SOON POSSIBLE IF ANY OF THE FOLLOWING OCCUR: * Sharp increase in pain, redness or swelling of the incision. * Presence of any wound drainage: yellow fluid, bright red blood, or pus (cream- colored drainage). * Fever over 101 degrees orally. ACTIVITY: * Light activity is allowed. * Gradually increase activity within your tolerance. * Walking is the best exercise for you at this time. You may build up to one or two miles a day during the first few weeks following surgery. * Climbing stairs is fine, but go slowly at first. * Do not lift anything heavier than 10 pounds for 1week. This is an estimation; therefore, use your judgment. * Do not drive a car until all of your pain is gone and your energy level is normal, or until your first office visit, whichever comes last. PAIN MEDICATION CAUTION: Your pain medicine may contain a narcotic (i.e. Codeine ). This can cause drowsiness and constipation. Do not drink alcohol, drive a car or work around machines while taking the medicine. Drink plenty of liquids to help prevent constipation. You may use Milk of Magnesia to relieve constipation. MEDICATIONS: Please see Reconciliation Form for usual medications IF YOU HAVE ANY QUESTIONS OR PROBLEMS PLEASE FEEL FREE TO CALL THE OFFICE AT TO TALK WITH ONE OF OUR DOCTORS OR NURSES. OUR ANSWERING SERVICE IS AVAILABLE 24 HOURS/DAY.
== END 2019-07-21 10:25 | disposition home or self-care (01) ==
LOC: ED 16:29 → SSU 22:38
PROVIDERS: ADMIT Surgery; ATTEND Surgery
DX: K35.80 Unspecified acute appendicitis (principal); R11.2 Nausea with vomiting, unspecified; K21.9 Gastro-esophageal reflux disease without esophagitis; E78.00 Pure hypercholesterolemia, unspecified; Z23 Encounter for immunization
CPT/HCPCS: 36415; 74177; 80053; 81003; 83605; 83690; 85025; 86140; 88304; 90471; 90686; 96361; 96365; 96366; 96375; 96376; 99284; A9270-GY; C1776; G0008; G0378; J0330; J1100; J1885; J2250; J2405; J2543; J2704; J3010; Q9967